=== PATIENT | female | born 1990 | race African-American/Black ===

== ENCOUNTER 2016-10-31 13:21 | Emergency (ER) | payer OTHER ==
[2016-10-31 13:30] VITALS: BP 126/74; PULSE 74; BMI 20.7
--- NOTE | 2016-10-31 14:12 | PDOC ---
[id number] No Limitations - History of Present Illness Initial Comments: 10/31/16 14:20 The patient is a 26-year-old woman M1, currently possibly , with a past medical history of scoliosis and chronic back pain who presents to the emergency department via EMS for further evaluation of lightheadedness today. She admits that she has not had anything to eat today. She lives in [place] and was on a bus transferring to [place] to purchase milk for her toddler daughter. She purchased her milk and felt lightheaded. She decided to get something to eat when she fell and landed on the right side of her body and hit the right side of her head. She denies loss of consciousness. She currently complains of a right-sided non-radiating headache with a rated 8/10 in severity. Her last menstrual period was on 10/22/2016. She states that her periods are irregular and she might be . She denies Chest pain, SOB, dizziness or palpitation. She denies any LOC, fever, chills, cough, N/V/D, visual changes, neck pain, dysuria, hematuria, frequency, bowel/bladder incontinence or retention, abdominal pain,. She denies other bodily pain or injury. Allergies: No Known Drug Allergies Past Surgical History: Caesarian Section Social History: Current everyday cigarette smoker (approximately 3/day). No ETOH use. No recreational drug use. Primary Care Physician: N/A <Evangelina Valencia - Last Filed: 10/31/16 14:42> <Symone Wyatt - Last Filed: 10/31/16 14:57> - General Chief Complaint: Injury Stated Complaint: DIZZY Past History <Evangelina Valencia - Last Filed: 10/31/16 14:42> - Past Medical History Other medical history: SCOLIOSIS. - Surgical History Neurologic Surgery: Yes (SCOLIOSIS.) - Psycho/Social/Smoking Cessation Hx Anxiety: No Suicidal Ideation: No Smoking History: Current every day smoker Number of Cigarettes Smoked Daily: 3 Information on smoking cessation initiated: No Hx Alcohol Use: No Drug/Substance Use Hx: No Substance Use Type: None <Symone Wyatt - Last Filed: 10/31/16 14:57> - Past Medical History Allergies/Adverse Reactions: Allergies Allergy/AdvReac Type Severity Reaction Status Date / Time No Known Allergies Allergy Verified 10/31/16 13:27 Home Medications: Ambulatory Orders NK [No Known Home Medication] 10/31/16 Review of Systems - Review of Systems Able to Perform ROS?: Yes Comments:: 10/31/16 14:22 Constitutional - Pt denies Fever, Chills, weakness, HEENT: denies vision changes, sore throat Respiratory: Denies cough, sob, hemoptysis Cardiac: +Lightheadedness. denies chest pain, palpitations, leg swelling Abd/GI: denies abd pain, nausea, vomiting, blood per rectum, melena, diarrhea : denies dysuria, frequency, discharge Musculoskeletal - denies back pain, joint swelling skin - denies bruising, erythema, rash neurological: +Headache. denies numbness, focal weakness, tingling, ataxia, weakness hematologic: denies anemia, easy bruising, easy bleeding <Evangelina Valencia - Last Filed: 10/31/16 14:42> *Physical Exam - Vital Signs Last Vital Signs Temp Pulse Resp BP Pulse Ox 74 18 126/74 98 10/31/16 13:28 10/31/16 13:28 10/31/16 13:28 10/31/16 13:28 - Physical Exam Comments: 10/31/16 14:22 GENERAL: The patient is awake, alert, and fully oriented, Nontoxic - in no acute distress. HEAD: Normocephalic, atraumatic. EYES: extraocular movements intact, sclera anicteric, conjunctiva clear. ENT: Normal voice, moist mucous membranes. NECK: Normal range of motion, supple without lymphadenopathy, JVD, or masses. LUNGS: Breath sounds equal, clear to auscultation bilaterally. No wheezes, no crackles, no rales. HEART: Regular rate and rhythm, normal S1 and S2 without murmur, rub or gallop. ABDOMEN: Soft, nontender, normoactive bowel sounds. No guarding, no rebound. No masses. EXTREMITIES: Normal range of motion, no edema. No clubbing or cyanosis. No cords , erythema, or tenderness. NEUROLOGICAL: Fully Oriented, Alert, Normal Mood/Affect, Motor Strength 5/5. No facial assymetry, Normal speech SKIN: Scar noted on her back for which she states its secondary to her back surgery. <Evangelina Valencia - Last Filed: 10/31/16 14:42> - Vital Signs Last Vital Signs Temp Pulse Resp BP Pulse Ox 74 18 126/74 98 10/31/16 13:28 10/31/16 13:28 10/31/16 13:28 10/31/16 13:28 <Symone Wyatt - Last Filed: 10/31/16 14:57> Heart Score/ECG Review #1 10/31/16 14:42 Reviewed and interpreted by Dr. Symone Wyatt IMPRESSION: Sinus bradycardia at 56 bpm. Normal axis. No acute ST abnormalities. No prior EKG obtainable for comparison. <Evangelina Valencia - Last Filed: 10/31/16 14:42> ED Treatment Course - RADIOLOGY Radiology Studies Ordered: Category Date Time Status HEAD CT WITHOUT CONTRAST [CT] Stat CT Scan 10/31/16 14:02 Ordered <Symone Wyatt - Last Filed: 10/31/16 14:57> Medical Decision Making - Medical Decision Making 10/31/16 14:12 I, Dr. Symone Wyatt , attest that the scribes documentation that appears above has been prepared under my direction and personally reviewed by me. I confirmed that the note above accurately reflects all work, treatment, procedures, and medical decision-making performed by me. 10/31/16 14:43 10/31/16 14:49 Pt ate in the ED a turkey sandwich and said she felt better, pt was walking around ED in no distress, pt said it was taling to long for her ct scan of head and to receive tylenol and pt walked out of ED. Pt did not have any IV in place , pt had a nl exam in ED prior to walking out. 10/31/16 14:56 Pt's ucg was negative, pt did sound relieved that she was not pregnat before walking out <Symone Wyatt - Last Filed: 10/31/16 14:57> *DC/Admit/Observation/Transfer - Attestations Scribe Attestion: 10/31/16 14:22 Documentation prepared by Evangelina Valencia, acting as medical clinic manager for Symone Wyatt DO. <Evangelina Valencia - Last Filed: 10/31/16 14:42> - Discharge Dispostion Admit: No <Symone Wyatt - Last Filed: 10/31/16 14:57> Diagnosis at time of Disposition: Headache - Discharge Dispostion Disposition: ELOPED Condition at time of disposition: Stable - Referrals Referrals: Taz Schmitt [Primary Care Provider] -
[2016-10-31] MEDS ORDERED: ACETAMINOPHEN 325 MG TABLET (FP) ONE (14:37)
--- NOTE | 2016-11-03 23:00 | EKG ---
Test Reason : Blood Pressure : / mmHG Vent. Rate : 056 BPM Atrial Rate : 056 BPM P-R Int : 134 ms QRS Dur : 090 ms QT Int : 428 ms P-R-T Axes : 035 061 055 degrees QTc Int : 413 ms SINUS BRADYCARDIA RSR' OR QR PATTERN IN V1 SUGGESTS RIGHT VENTRICULAR CONDUCTION DELAY BORDERLINE ECG NO PREVIOUS ECGS AVAILABLE Confirmed by ELSY LOPEZ MD ([id number]) on 11/03/2016 11:00:28 PM Referred By: Confirmed By:ELSY LOPEZ MD
== END 2016-10-31 14:51 | disposition home or self-care (01) ==
LOC: MERGE 13:21 → JER 13:21
DX: R51 Headache (principal); W01.198A Fall on same level from slipping, tripping and stumbling with subsequent striking against other object, initial encounter; Y93.89 Activity, other specified; Y92.89 Other specified places as the place of occurrence of the external cause
CPT/HCPCS: 84703; 93005; 93010; 99282-25

== ENCOUNTER 2019-02-03 09:22 | Emergency (ER) | payer OTHER ==
[2019-02-03 09:32] VITALS: BP 134/92; PULSE 86; TEMP 97.9; BMI 20.7
[2019-02-03] MEDS ORDERED: ACETAMINOPHEN 500 MG TABLET (FP) PO ONE (09:51)
[2019-02-03] MEDS ORDERED: DIPHTH,PERTUSS(ACELL),TET 0.5 ML DISP.SYRIN IM ONE ×2 (09:51→10:10)
[2019-02-03] MEDS ORDERED: ONDANSETRON *ODT* 4 MG TABLET SL ONE (09:51)
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
[2019-02-03] MEDS ORDERED: ACETAMINOPHEN 325 MG TABLET (FP) ONE (10:10)
[2019-02-03] MEDS ORDERED: ONDANSETRON *ODT* 4 MG TABLET ONE (10:10)
== END 2019-02-03 11:15 | disposition home or self-care (01) ==
LOC: JER 09:22
PROC: 0HQBXZZ Repair Right Upper Arm Skin, External Approach (ICD-10-PCS; principal; 2019-02-03)
PROC: 3E0234Z Introduction of Serum, Toxoid and Vaccine into Muscle, Percutaneous Approach (ICD-10-PCS; 2019-02-03)
DX: S06.0X9A Concussion with loss of consciousness of unspecified duration, initial encounter (principal); S41.011A Laceration without foreign body of right shoulder, initial encounter; S61.512A Laceration without foreign body of left wrist, initial encounter; M25.532 Pain in left wrist; Y00.XXXA Assault by blunt object, initial encounter; Y93.89 Activity, other specified; Y92.099 Unspecified place in other non-institutional residence as the place of occurrence of the external cause; Y99.8 Other external cause status
CPT/HCPCS: 12001-25; 70450-TC; 70486-TC; 73110-TC-LT-FY; 84703; 90471; 90715; 99283-25; Q0162

== ENCOUNTER 2024-11-04 10:32 | Emergency (ER) | payer OTHER ==
[2024-11-04 10:50] VITALS: BP 123/82; PULSE 72; RESP 18; TEMP 97.6; BMI 25.9
[2024-11-04] MEDS ORDERED: ACETAMINOPHEN 500 MG TABLET (FP) ONE (11:58)
[2024-11-04] MEDS: ACETAMINOPHEN 500 MG TABLET (FP) PO ONE (12:06)
[2024-11-04] MEDS: AMOX TR/POT CLAV 875MG/125MG TABLETS (FP) PO ONE (12:22)
[2024-11-04 14:13] LABS: HCV DIAGNOSTIC IN-HOUSE W/RFLX NON-REACTIVE (NONREACTIVE)
[2024-11-04 14:14] LABS: HIV INTERPRETATION NEGATIVE (NEGATIVE)
== END 2024-11-04 14:03 | disposition home or self-care (01) ==
LOC: JER 10:32
DX: S61.233A Puncture wound without foreign body of left middle finger without damage to nail, initial encounter (principal); S50.811A Abrasion of right forearm, initial encounter; W54.0XXA Bitten by dog, initial encounter
CPT/HCPCS: 36415; 70450-TC; 84703; 86803; 87389; 99284-25